=== PATIENT | male | born 1945 | race Two or more races ===

== ENCOUNTER 2022-08-17 07:23 | Outpatient (CLI) | payer OTHER | END 2022-08-17 07:25 | disposition home or self-care (01) | LOC: NUCLEAR 07:23 | PROVIDERS: ATTEND Urology | DX: I25.10 Atherosclerotic heart disease of native coronary artery without angina pectoris (principal); I65.1 Occlusion and stenosis of basilar artery | CPT/HCPCS: 78452; 93017; A9500 ==